=== PATIENT | female | born 1965 | race Caucasian/White ===

== ENCOUNTER 2019-12-13 12:19 | Emergency (ER) | payer OTHER, SELFPAY ==
--- NOTE | ~2019-12-13 | CT_ITS ---
EXAMINATION: CTA brain carotid DATE: 12/13/2019 13:44 INDICATION: Headache. Neck pain. TECHNIQUE: Computed tomographic angiography (CTA) of the head was performed without and with 100 mL O mnipaque-350 intravenous contrast. CTA of the neck was performed with intravenous contrast. Automated exposure control and iterative reconstruction technique were employed. The dose-length product was 1 759.47 mGy-cm. Maximum intensity projection and volume rendered 3D-reconstructions were created by guillaume bae technologist on a separate workstation. COMPARISON: None. FINDINGS: HEAD CTA: There is no intracranial hemorrhage, acute infarction, or abnormal intracranial mass lesion . There are small areas of cystic encephalomalacia in the left frontal lobe centrum semiovale and rig ht frontal lobe gill radiata. There is no intracranial hemorrhage, acute infarction, or abnormal in tracranial mass lesion. The ventricles are normal in size. There is mild mucosal thickening in the pa ranasal sinuses. The orbits are normal. The mastoid air cells are normal. Left vertebral artery is do minant. There is no significant stenosis of basilar artery or the posterior cerebral arteries. The po sterior communicating arteries are normal. There is no significant stenosis of the intracranial inter nal carotid arteries or anterior or middle cerebral arteries. There is no aneurysm. Anterior communic ating artery is normal. NECK CTA: There is mild emphysema. There is no significant stenosis of the vertebral arteries. There is plaque in the proximal internal carotid arteries. There is 0% stenosis of the proximal right inter nal carotid artery relative to normal distal artery lumen diameter (NASCET criteria). There is 0% car nosis of the proximal left internal carotid artery relative to normal distal artery lumen diameter. T here is moderate cervical spondylosis. IMPRESSION: 1. Small areas of cystic encephalomalacia in bilateral frontal lobe white matter. 2. No aneurysm or significant intracranial arterial stenosis. 3. 0% stenosis of the proximal internal carotid arteries relative to normal distal artery lumen diame ters (NASCET criteria). Reviewed, dictated and finalized at location A. ING MACHINE OPERATOR IMPRESSION: 1. Small areas of cystic encephalomalacia in bilateral frontal lobe white matte r. 2. No aneurysm or significant intracranial arterial stenosis. 3. 0% stenosis of the proximal internal carotid arteries relative to normal dis tay artery lumen diameters (NASCET criteria).
[2019-12-13 12:32] VITALS: BP 148/91; PULSE 74; RESP 18; TEMP 36.3; O2SAT 99
[2019-12-13 12:44] VITALS: BP 190/85; PULSE 75; RESP 14; TEMP 36.3; O2SAT 96
--- NOTE | 2019-12-13 12:54 | ED.NEUROSD ---
HPI - Neuro Symptoms/Deficit General Chief Complaint: Neuro Symptoms/Deficit Stated Complaint: Numb all over Time Seen by Provider: 12/13/19 12:53 Source: patient and family Mode of arrival: EMS Limitations: no limitations History of Present Illness HPI Narrative: The pt is a 54 y/o female who presents to the ED, via EMS, c/o numbness to the face and all extremities onset today. She states that three days ago, she struck her head on her TV stand three days ago. Her family states that she has had an MCKNIGHT since then. Pt notes that she did not receive care at that time, but has been taking more Aspirin. Pt states that she was showering when she began to experience a sharp MCKNIGHT and tingling in her right thumb. This resolved. Pt states that she went to her mother's later. She states that she went to answer the door when she began to experience tingling in her face and both hands, as well as her MCKNIGHT. This later developed into numbness across the face and all four extremities. She notes that she does not have any history of previous episodes. She does note she has a PMHx of anxiety. [facility]. Pt denies neck pain and back pain. Location: left face, right face, left arm, right arm, left leg and right leg History of same: No Quality: numb and tingling (Resolved) Associated symptoms: headaches (Sharp, Onset three days ago) and other (Tingling to the right thumb, bilateral hands, and left face (Resolved), Head injury (Occurred three days ago)) Related Data Home Medications Medication Instructions Recorded Confirmed Benadryl 12/13/19 Paxil 12/13/19 Xanax 12/13/19 Zantac 12/13/19 lamotrigine 12/13/19 Allergies Allergy/AdvReac Type Severity Reaction Status Date / Time No Known Allergies Allergy Verified 12/13/19 12:52 Review of Systems Review of Systems: Narrative: Review of Systems Musculoskeletal: Negative for back pain and neck pain. Neurological: Positive for numbness to the face and all four extremities, resolved tingling to the right thumb, bilateral hands, and left face, sharp headache onset three days ago, and head injury that occurred three days ago. All systems reviewed & are unremarkable except as noted in HPI and below PMFSH Past Medical History Medical History (Updated 12/13/19 @ 14:27 by Deanne Moise MD) Anxiety Surgical History Surgical History (Updated 12/13/19 @ 13:08 by Chris Paulson) Surgical history unknown Social History Social History (Updated 12/13/19 @ 13:08 by Chris Paulson) Smoking status: Unknown if ever smoked Gender identity (if verbalized by the patient): Female Comments PCP: [facility] Exam Narrative: Exam Narrative: Constitutional: Appears well-developed. No distress. HENT: Head: Normocephalic. Nose: Nose normal. Mouth/Throat: Oropharynx is clear and moist. Eyes: Conjunctiva are normal. Neck: C-Collar in place. Cardiovascular: Normal rate and regular rhythm. Pulmonary/Chest: Effort normal and breath sounds normal. Abdominal: Soft. There is no tenderness. Musculoskeletal: Normal range of motion. No edema. Neurological: Alert and oriented to person, place, and time. Decreased movement in all four extremities, with pt unable to lift either arm or leg off of stretcher. Sensation intact throughout. Skin: Skin is warm. No pallor. Psychiatric: Normal mood and affect. Psych: Affect: Anxious affect present Course Reevaluation(s) Reevaluation #1: Upon re-evaluation, patient is able to ambulate and move all four extremities without difficulty. Will discharge. Date: 12/13/19 Time: 14:24 Vital Signs Vital signs: Vital Signs Temperature 36.3 C L 12/13/19 12:32 Pulse Rate 74 12/13/19 12:32 Respiratory Rate 18 12/13/19 12:32 Blood Pressure 148/91 H 12/13/19 12:32 Pulse Oximetry 99 12/13/19 12:32 Temperature 36.3 C L 12/13/19 12:44 Pulse Rate 78 12/13/19 14:25
--- NOTE | 2019-12-13 13:02 | ECG_ITS ---
Measurements Intervals [place] Rate: 64 P: 56 CA: 165 QRS: 19 QRSD: 93 T: 59 QT: 396 QTc: 409 Interpretive Statements SINUS RHYTHM BORDERLINE ST ABNORMALITY- ANTEROLAT/LAT LEADS BORDERLINE ECG Electronically Signed On 12-13-2019 16:23:34 CORRECTIONS CORPORAL by Ramesh Beth D.O.
[2019-12-13] MEDS: LORAZEPAM INJ 2 MG/ML VIAL 0.5 MG IV PUSH (13:11)
[2019-12-13 13:16] LABS: Basophils Percent Auto 0.3 % (0.2-1.2); Eosinophils Absolute Auto 0.4 K/mm3 (0-0.3); Eosinophils Percent Auto 4.8 % (0-4.4); Hematocrit 40.1 % (37.0-47.0); Hemoglobin 13.5 g/dL (12.0-15.0); Immature Granulocyte Absolute 0.02 K/mm3 (0.00-0.031); Immature Granulocyte Percent A 0.3 % (0-0.5); Lymphocytes Absolute Auto 1.84 K/mm3 (0.9-3.2); Lymphocytes Percent Auto 25.2 % (18.3-44.2); Mean Corpuscular HGB Conc 33.7 g/dl (32-36); Mean Corpuscular Hemoglobin 31.7 pg (26-34); Mean Corpuscular Volume 94.1 fl (80-100); Mean Platelet Volume 11.4 fl (7.4-10.4); Monocytes Absolute Auto 0.9 K/mm3 (0.1-0.6); Monocytes Percent Auto 11.9 % (2.6-8.5); Neutrophils Absolute Auto 4.2 K/mm3 (1.3-6.7); Neutrophils Percent Auto 57.5 % (45.5-73.1); Platelet Count Result 166 k/mm3 (150-375); Red Blood Count 4.26 M/mm3 (4.2-5.4); Red Cell Distribution Width 11.8 % (11.5-14.5); White Blood Count 7.3 K/mm3 (4.5-10.0)
[2019-12-13 13:28] LABS: Alanine Aminotransferase 58 U/L (4-35); Albumin Level 4.3 g/dL (3.5-5.1); Alkaline Phosphatase 82 U/L (38-126); Aspartate Amino Transferase 38 U/L (14-36); Bilirubin,Total 0.3 mg/dL (0.2-1.3); Blood Urea Nitrogen 11 mg/dL (7-17); Calcium 9.2 mg/dL (8.4-10.2); Carbon Dioxide 29 mmol/L (22-30); Chloride 98 mmol/L (98-107); Estimated CRCL calculation 96 ml/min; Estimated Glomerular Filt Rate > 60; Glucose 101 mg/dL (65-105); INR 0.9; Partial Thromboplastin Time 25.8 SECONDS (22.3-36.8); Potassium 3.7 mmol/L (3.4-5.0); Prothrombin Time 11.6 Seconds (11.1-14.7); Sodium 136 mmol/L (137-145)
[2019-12-13 13:30] LABS: Blood Urea Nitrogen 9 mg/dL (8-26); Estimated CRCL calculation 96 ml/min; Estimated Glomerular Filt Rate > 60
--- NOTE | 2019-12-13 13:45 | PC.NURSE ---
C-Collar removed, no cervical fracture, EDP aware and is ok with removal.
--- NOTE | 2019-12-13 14:00 | PC.NURSE ---
Pt. stated she feels completely better . Pt. ambulating and disconnecting themselves off the monitor. EDP notified. EDP ok with Pt. discharge.
[2019-12-13 14:08] LABS: Add Urine Microscopic? NO; Appearance Urine Clear (Clear); Bilirubin Urine Negative (Negative); Blood Urine Negative (Negative); Color Urine Colorless (Yellow); Glucose Urine UA Negative (Negative); Ketones Urine Negative (Negative); Leukocyte Esterase Ur Negative LEU/UL (Negative); Nitrate Urine Negative (Negative); Protein Urine Negative (Negative); Urobilinogen Urine Negative mg/dL (<2.0)
[2019-12-13 14:13] LABS: Specific Grav Ur 1.048 (1.001-1.035)
[2019-12-13 14:25] VITALS: BP 155/91; PULSE 78; RESP 14; O2SAT 100
== END 2019-12-13 14:35 | disposition home or self-care (01) ==
PROVIDERS: Emergency Provider Emergency Medicine
DX: R20.2 Paresthesia of skin (principal); R53.1 Weakness; F41.9 Anxiety disorder, unspecified; R94.31 Abnormal electrocardiogram [ECG] [EKG]
CPT/HCPCS: 36415; 51701; 70496; 70498; 80053; 81003; 85025; 85610; 85730; 93005; 96374; 99284; J2060; L0140; Q9967

== ENCOUNTER 2023-04-26 22:35 | Inpatient (IN) | payer OTHER, SELFPAY ==
[2023-04-26] VITALS (8 sets, daily range): BP systolic 155–181; BP diastolic 80–117; PULSE 67–80; RESP 13–20; TEMP 36.7; O2SAT 100
--- NOTE | ~2023-04-26 | MR_ITS ---
EXAMINATION: MR brain/brain stem wo/w con DATE: 04/27/2023 11:10 INDICATION: Headache. Left hemiparesis. TECHNIQUE: Magnetic resonance imaging (MRI) of the brain and brainstem was performed without and with 20 mL MultiHance intravenous contrast. COMPARISON: Head CT 04/26/2023 FINDINGS: There is an acute infarct in the yoana on the right. There are scattered areas of nonspecifi c increased T2-weighted signal intensity in the cerebral white matter. There is no intracranial hemor rhage or abnormal mass lesion. The ventricles are normal in size. There is mild mucosal thickening in the paranasal sinuses. The orbits are normal. The mastoid air cells are normal. IMPRESSION: 1. Acute infarct in the yoana on the right. 2. Mild nonspecific cerebral white matter disease, which likely represents chronic small vessel ische shu disease. Reviewed, dictated and finalized at location A. IMPRESSION: 1. Acute infarct in the yoana on the right. 2. Mild nonspecific cerebral white matter disease, which likely represents director financial systems freida small vessel ischemic disease.
--- NOTE | ~2023-04-26 | CT_ITS ---
CT ANGIOGRAM NECK AND HEAD History: CVA, left-sided weakness. Technique: Serial spiral axial images through the head and neck were obtained during arterial phase I V injection of 100 cc of Omnipaque 350. 3-D postprocessing and MIP images were then reconstructed on the remote workstation. Dose reduction technique was used on this scan by utilizing automated Accertifyur e control and iterative reconstruction technique. The dose-length product (DLP) was 1189.82 mGy-cm. CTA neck findings: Bilateral vertebral bodies are patent. Bilateral common carotid, internal carotid , and external carotid arteries are patent. No large vessel occlusion. No stenosis or aneurysm. The p roximal right internal carotid artery demonstrates 0% stenosis relative to the normal distal artery l umen diameter. The proximal left internal carotid artery demonstrates 0% stenosis relative to the nor mal distal artery lumen diameter. CTA head findings: Distal vertebral arteries, basilar artery, and posterior cerebral arteries are pat ent. Distal internal carotid arteries, middle cerebral arteries, and anterior cerebral arteries are p atent. No large vessel occlusion. No stenosis or aneurysm. Impression: No significant abnormality seen. Reviewed, dictated and finalized at location . Impression: No significant abnormality seen.
--- NOTE | ~2023-04-26 | XR_ITS ---
EXAMINATION: XR chest 1V portable 04/26/2023 23:04 INDICATION: Stroke. PROCEDURE: AP portable chest COMPARISON: No prior studies for comparison. FINDINGS: The lungs are clear. The cardiomediastinal silhouette is within normal limits. There are no pleural effusions. There is no pneumothorax suspected. IMPRESSION: 1: NO ACUTE CARDIOPULMONARY DISEASE. Reviewed, dictated and finalized at location L.
--- NOTE | ~2023-04-26 | CT_ITS ---
Non-contrast Head CT History: CVA, left-sided weakness COMPARISON: 12/13/2019 Technique: Axial non-contrast imaging of the brain was performed. Dose reduction technique was used on this scan by utilizing automated exposure control and iterative reconstruction technique. The dose -length product (DLP) was 605.33 mGy-cm. Findings: There is no evidence of intracranial hemorrhage, mass lesion, or acute infarct. Brain par enchyma appears normal. The ventricles and subarachnoid spaces are normal in size. The calvarium ap pears normal. The visualized paranasal sinuses and mastoid air cells are clear. Impression: No significant abnormality seen. Case discussed with Dr. Osullivan at 10:50 p.m. on 04/26/2023. Reviewed, dictated and finalized at location M. Impression: No significant abnormality seen. Case discussed with Dr. Osullivan at 10:50 p.m. on 04/26/2023.
--- NOTE | 2023-04-26 22:35 | ECG_ITS ---
Measurements Intervals [place] Rate: 62 P: 72 MA: 172 QRS: 34 QRSD: 82 T: 94 QT: 374 QTc: 380 Interpretive Statements SINUS RHYTHM POSSIBLE LEFT ATRIAL ENLARGEMENT [-0.1mV P-WAVE IN V1/V2] ST DEVIATION AND MODERATE T-WAVE ABNORMALITY, CONSIDER LATERAL ISCHEMIA [-0.1+ mV T- WAVE IN I/aVL/V5/V6] COMPARED TO ECG 12/13/2019 13:14:10 NO SIGNIFICANT CHANGES Electronically Signed On 04-27-2023 14:04:27 CDT by Enrirque Dalton M.D.
--- NOTE | 2023-04-26 22:39 | ED.NEUROSD ---
HPI - Neuro Symptoms/Deficit General Chief Complaint: Suspected CVA Stated Complaint: cva History of Present Illness HPI Narrative: Patient 58-year-old female who presents the emergency department with chief complaint of strokelike symptoms. The patient reports that at 9 PM she started having a left-sided facial droop and left-sided arm and leg weakness and started having some difficulty with speech. Patient states that she had a little bit of headache with this the patient reports no prior history of stroke. Related Data Home Medications Medication Instructions Recorded Confirmed Benadryl 12/13/19 Paxil 12/13/19 Xanax 12/13/19 Zantac 12/13/19 lamotrigine 12/13/19 Allergies Allergy/AdvReac Type Severity Reaction Status Date / Time No Known Allergies Allergy Verified 12/13/19 12:52 Review of Systems Review of Systems: A 10 system review of systems was completed on the patient and is negative except for what is stated in the HPI. Nursing and ancillary documentation was reviewed. [facility] Past Medical History Medical History Anxiety Surgical History Surgical History Surgical history unknown Social History Social History Smoking status: Unknown if ever smoked Gender identity (if verbalized by the patient): Female Exam Narrative: GENERAL: Well-appearing, well-nourished, and in no acute distress. HEAD: Normocephalic, atraumatic. EYES: PERRLA and EOMI. ENT: Nares clear, no rhinorrhea or epistaxis. Mucous membranes moist. NECK: Supple. CHEST: Clear to auscultation. No respiratory distress. HEART: Regular rate and rhythm. No murmur heard. Normal peripheral pulses. ABDOMEN: Soft, nontender, nondistended, normal active bowel sounds. EXTREMITIES: Normal range of motion. No edema. SKIN: Warm, dry, no rash. NEURO: Left-sided facial droop, left upper extremity and left lower extremity weakness PSYCH: Normal mood and affect. Course Vital Signs Vital signs: Vital Signs Pulse Rate 70 04/26/23 22:52 Respiratory Rate 16 04/26/23 22:52 Blood Pressure 181/81 H 04/26/23 22:52 Pulse Oximetry 100 04/26/23 22:52 Oxygen Delivery Room Air 04/26/23 22:52 Temperature 36.7 C 04/26/23 23:17 Pulse Rate 68 04/26/23 23:18 Respiratory Rate 18 04/26/23 23:17 Blood Pressure 161/117 H 04/26/23 23:17 Pulse Oximetry 100 04/26/23 23:17 Oxygen Delivery Room Air 04/26/23 22:52 MDM - Neuro Symptoms/Deficit MDM Narrative Medical decision making narrative: Differential diagnosis includes acute CVA, complex migraine, electrolyte abnormality, conversion disorder The patient the patient was initially seen as a code stroke and initially had an NIH of between 5 and 6. The patient was taken immediately to CT scan of which CTs showed no evidence of hemorrhage CT angiography of the head and neck showed no evidence of occlusion The case was discussed with stroke neurology at [facility] who given the patient is having severe headache with the onset of symptoms felt that this was most likely secondary to complex migraine the patient at that time had already had some improvement and was starting to move the left upper extremity and had mild movement in the left lower extremity as well so was starting to develop rapidly improving symptoms. The patient was offered tPA but due to the 2% risk of and 6% risk of hemorrhage the patient stated that she wanted to treat this as though it was a complex migraine and did not want to receive thrombolytic therapy The patient had improvement in her neurological symptoms after receiving a migraine cocktail the patient is now able to move all extremities and NIH has improved to 0 Most likely the symptoms are due to complex migraine but the patient w
[2023-04-26 22:43] LABS: Estimated Glomerular Filt Rate > 60
--- NOTE | 2023-04-26 22:46 | PC.NURSE ---
Addendum entered by Adelita Puentes RN 04/26/23 22:55: golf club head inspector, Marilu, made aware. Original Note: While assisting patient and EMS in CT this RN placed an IV in pts R AC after discussing this with patient. Upon insertion flashback was shown and blood being collecting. Pt screaming take it out take it out now I only get butterflys! Education provided by this RN and NIK Li, that if she is having a stroke a larger bore IV is required and if taken out the patient will need to be stuck again. Pt agreed to leave PIV in and when this RN placed and patted the edges of the tegaderm on to secure PIV the pt lifted her head off the CT table and got close to this RNs face and screamed what the hell are you doing to me?! You didnt have to pat it! This RN apologized and stated I was just trying to help and would never purposefully hurt her and that respect and kindness go a long way both ways. Pt then yelled So does compassion! This RN then left and NIK Li, with patient.
[2023-04-26 22:49] LABS: Basophils Percent Auto 0.3 % (0.2-1.2); Eosinophils Absolute Auto 0.3 K/mm3 (0-0.3); Eosinophils Percent Auto 4.4 % (0-4.4); Hematocrit 42.1 % (37.0-47.0); Hemoglobin 14.1 g/dL (12.0-15.0); Immature Granulocyte Absolute 0.03 K/mm3 (0.00-0.031); Immature Granulocyte Percent A 0.5 % (0-0.5); Lymphocytes Absolute Auto 2.25 K/mm3 (0.9-3.2); Lymphocytes Percent Auto 35.1 % (18.3-44.2); Mean Corpuscular HGB Conc 33.5 g/dl (32-36); Mean Corpuscular Hemoglobin 31.8 pg (26-34); Mean Corpuscular Volume 94.8 fl (80-100); Monocytes Absolute Auto 0.7 K/mm3 (0.1-0.6); Monocytes Percent Auto 10.5 % (2.6-8.5); Neutrophils Absolute Auto 3.2 K/mm3 (1.3-6.7); Neutrophils Percent Auto 49.2 % (45.5-73.1); Platelet Count Result 185 k/mm3 (150-375); Red Blood Count 4.44 M/mm3 (4.2-5.4); Red Cell Distribution Width 12.1 % (11.5-14.5); White Blood Count 6.4 K/mm3 (4.5-10.0)
[2023-04-26 22:59] LABS: INR 0.9
[2023-04-26 23:01] LABS: Alanine Aminotransferase 42 U/L (6-35); Albumin Level 4.2 g/dL (3.5-5.1); Alkaline Phosphatase 66 U/L (38-126); Anion Gap 7 mmol/L (8-16); Aspartate Amino Transferase 38 U/L (14-36); Bilirubin,Total 0.3 mg/dL (0.2-1.3); Blood Urea Nitrogen 13 mg/dL (7-17); Carbon Dioxide 32 mmol/L (22-30); Chloride 101 mmol/L (98-107); Estimated Glomerular Filt Rate > 60; Glucose 134 mg/dL (65-110); Potassium 3.9 mmol/L (3.4-5.0); Sodium 140 mmol/L (137-145)
[2023-04-26 23:30] LABS: Troponin I < 0.012 ng/mL (0.000-0.034)
[2023-04-26] MEDS: SODIUM CHLORIDE 0.9% IV 1,000 ML 999 ML IV CONT (23:34)
[2023-04-26] MEDS: MAGNESIUM SULF 1 GM/D5W 100 ML 1 GM/100 ML BAG IVPB (23:36)
[2023-04-26] MEDS: KETOROLAC 30 MG/ML VIAL (*BKC) IV PUSH (23:37)
[2023-04-26] MEDS: diphenhydrAMINE HCl INJ 50 MG/ML VIAL IV PUSH (23:39)
[2023-04-26] MEDS: PROCHLORPERAZINE EDISYLATE 10 MG/2 ML VIAL IV PUSH (23:40)
[2023-04-26] MEDS: diphenhydrAMINE HCl INJ 50 MG/ML VIAL 25 MG IV PUSH (23:54)
[2023-04-27] VITALS (28 sets, daily range): BP systolic 136–208; BP diastolic 78–123; PULSE 56–93; RESP 12–20; TEMP 36.1–36.7; O2SAT 94–100; BMI 36.3
[2023-04-27] MEDS: LORazepam INJ (*CRX) 2 MG/ML VIAL 0.5 MG IV PUSH (00:58)
--- NOTE | 2023-04-27 02:19 | PM.IMHP ---
H&P: HPI History of Present Illness Date/Time: 04/27/23 02:19 Chief Complaint: Left-sided weakness Narrative: This is a 58-year-old female with past medical history significant for migraine headaches, generalized anxiety, GERD, obesity. Patient presents to the emergency room due to left-sided weakness, facial droop, speech disturbance and headache. Patient has been in her usual state of health up until this point, denies any nausea, vomiting, vision changes, headaches, shortness of breath, leg swelling, PND, orthopnea, syncope or near syncope. In emergency room patient received treatment for headache. Patient had resolution of symptoms, stroke team a from [facility] was consulted as well. Patient is been placed in observation for further evaluation management and treatment. Review of Systems Review of Systems: Left-sided weakness, facial droop, speech disturbance, headache. Constitutional: Constitutional: Denies chills, Denies fatigue, Denies fever(s), Reports headache(s), Denies malaise and Denies poor appetite Eyes: Eyes: Denies change in vision ENT: Denies dysphagia, Denies vertigo, Denies dizziness, Reports headache(s) and Denies odynophagia Cardiovascular: Cardiovascular: Denies chest pain, Denies leg edema, Denies lightheadedness, Denies radiating jaw, neck or arm pain and Denies palpitations Respiratory: Respiratory: Denies chest congestion, Denies cough, Denies excessive phlegm production and Denies dyspnea Gastrointestinal: Gastrointestinal: Denies abdominal pain, Denies dyspepsia, Denies heartburn, Denies diarrhea, Denies nausea and Denies vomiting Genitourinary: Genitourinary: Denies dysuria Musculoskeletal: Musculoskeletal: Denies abnormal gait and Denies myalgias Integumentary/Breasts: Skin/Breast: Denies rash Neurologic: Reports focal weakness and Reports Sensory deficit (Neuro) Psychiatric: Psychiatric: Reports no additional psychiatric complaints and Reports as per HPI Endocrine: Endocrine: Denies cold intolerance, Denies flushing, Denies heat intolerance, Denies polyphagia, Denies polydipsia and Denies palpitations Hematologic/Lymphatic: Hematologic/Lymphatic: Reports no additional hematologic/lymphatic complaints and Reports as per HPI Allergic/Immunologic: Allergic/Immunologic: Reports no additional allergic/immunologic complaints and Reports as per HPI PMF Past Medical History Medical History Anxiety Surgical History Surgical History Surgical history unknown Social History Social History Smoking status: Unknown if ever smoked Gender identity (if verbalized by the patient): Female Meds Home Medications and Allergies Home Medications Medication Instructions Recorded Confirmed Type Benadryl 12/13/19 History Paxil 12/13/19 History Xanax 12/13/19 History Zantac 12/13/19 History lamotrigine 12/13/19 History Allergies Allergy/AdvReac Type Severity Reaction Status Date / Time No Known Allergies Allergy Verified 12/13/19 12:52 Vital Signs Vital Signs - 24 hr 04/26/23 22:52 04/26/23 23:17 04/26/23 23:18 Temperature 98.1 F Pulse Rate 70 69 68 Respiratory Rate 16 18 Blood Pressure 181/81 H 161/117 H Pulse Oximetry 100 100 Oxygen Delivery Room Air Exam Narrative: Patient is laying in a stretcher Const: General: comfortable, no acute distress, well developed, alert, awake and average body habitus Nutritional Appearance: obese Orientation/consciousness: patient oriented x3 HENMT: Head: normal to inspection, normocephalic and atraumatic Ears: hearing grossly normal bilaterally Face/Nose/Sinus: normal facial exam Face and sinus: normal facial exam Eyes: General: appearance normal, both eyes and all related structures Pupils: Equal, round
--- NOTE | 2023-04-27 02:49 | PC.NURSE ---
Patient was offered TPA by Dr. Abran ANTOIEN, but patient refused.
[2023-04-27 03:06] LABS: Appearance Urine Clear (Clear); Bilirubin Urine Negative (Negative); Blood Urine Negative (Negative); Color Urine Yellow (Yellow); Glucose Urine UA Negative (Negative); Ketones Urine Negative (Negative); Leukocyte Esterase Ur Negative LEU/UL (Negative); Nitrate Urine Negative (Negative); Protein Urine Negative (Negative); Urobilinogen Urine 0.2 mg/dL (<2.0); pH Urine 5.5 (5.0-9.0)
[2023-04-27 03:07] LABS: Add Urine Microscopic? NO; Specific Grav Ur 1.043 (1.001-1.035)
--- NOTE | 2023-04-27 05:51 | ADMGEN ---
This patient, Jacquelyn Jimenez, was admitted to [facility] Surg Room 329-01. Patient/family oriented to hospital policies and general routines including ID bracelet, bed and alarms, visiting hours, pain management, procedures, bathroom and other care routines, personal items, smoking policy, room service/diet, and visiting hours. Information on how to activate the Rapid Response Team has been discussed. Patient/Family are encouraged to report perceived risks to care and to ask questions if they do not understand what they are told or what they should do.
[2023-04-27 08:00] LABS: Glucose Point of Care 167 mg/dl (65-105)
[2023-04-27] MEDS: hydrALAZINE HCL 20 MG/ML VIAL 10 MG IV PUSH (08:29)
[2023-04-27] MEDS: PARoxetine 20 MG TABLET 40 MG PO (09:47)
[2023-04-27] MEDS: lamoTRIgine 50 MG TABLET PO (09:47)
[2023-04-27] MEDS: LORATADINE 10 MG TABLET PO (09:50)
[2023-04-27] MEDS: LORazepam (*CRX) 1 MG TABLET PO ×2 (10:42→20:15)
--- NOTE | 2023-04-27 12:16 | WPDNEURCNPN ---
Assessment and Plan Assessment and plan (1) Complicated migraine: Code(s): G43.109 - Migraine with aura, not intractable, without status migrainosus Status: Acute (2) Generalized anxiety disorder: Code(s): F41.1 - Generalized anxiety disorder Status: Acute Plan 1 complex migraine 2 history of generalized anxiety disorder plan a as outlined Consult date: 04/27/23 HPI: Jacquelyn Jimenez is a 58 year old female admitted to the hospital through the emergency room with complaints of stroke-like symptoms and with the description that around 9:00 p.m. she started having left-sided facial droop and left-sided upper extremity and lower extremity weakness along with the mild headache but with no previous history of stroke. Patient reportedly taking multiple medications which include Paxil Xanax lamotrigine and Benadryl. She is not allergic to any medication initial examination in the emergency room documented the left-sided facial droop with left upper extremity and left lower extremity weakness vital signs were with blood pressure 181/81 repeat 161/[address] scan of the head was negative [facility] was contacted by the ER who suggested the possibility of complex migraine as patient was improving in the emergency room for no transfer was indicated she was offered the tPA but considering the complications it was not accepted. Her CBC was normal so as the BMP and other lab she was admitted to the hospital with stroke scale of 1, she had an MRI done which revealed acute infarct in the yoana on the right side with nonspecific white matter disease and head neck CTA was negative at this particular time she is on p.r.n. hydralazine to control the blood pressure 10 mg q.8 hours IV push and all her other medications are continued as such PMFSH Past Medical History Medical History Anxiety Surgical History Surgical History Surgical history unknown Social History Social History Smoking packs per day: 1 Smoking cigarettes per day: 20.0 Smoking status: Heavy tobacco smoker Tobacco type: cigarettes Second hand tobacco smoke exposure: Yes Alcohol intake: current Drinks per week: 5 Substance use: never Substance use type: does not use Lack of Transportation: No Lack of Food: Never True Current Housing: I Have Housing Concerned About Future Housing: No Difficulty Paying Gas/Electric Bills: No Difficulty Paying for Meds: No Currently Unemployed: No Education: High School Diploma/GED Difficulty w/ Childcare or Family Care: No Gender identity (if verbalized by the patient): Female Spiritual care concerns: No Meds Home Medications and Allergies Home Medications Medication Instructions Recorded Confirmed Type Paxil 40 mg PO DAILY 12/13/19 04/27/23 History lamotrigine 50 mg PO DAILY 12/13/19 04/27/23 History albuterol sulfate 90 mcg/actuation 2 puff inhalation QID PRN SOB 04/27/23 04/27/23 History aerosol inhaler (ProAir HFA) cetirizine 10 mg tablet (Zyrtec) 10 mg PO DAILY 04/27/23 04/27/23 History lorazepam 1 mg tablet 1 mg PO Q12H 04/27/23 04/27/23 History mometasone-formoterol HFA 200 2 puff inhalation Q12H PRN SOB 04/27/23 04/27/23 History mcg-5 mcg/actuation aerosol inhaler (Dulera) omeprazole 20 mg capsule,delayed 20 mg PO DAILY PRN Heartburn 04/27/23 04/27/23 History release Allergies Allergy/AdvReac Type Severity Reaction Status Date / Time No Known Allergies Allergy Verified 12/13/19 12:52 Vital Signs Vital Signs - 24 hr 04/26/23 22:52 04/26/23 23:17 04/26/23 23:18 Temperature 36.7 C Pulse Rate 70 69 68 Respiratory Rate 16 18 Blood Pressure 181/81 H 161/117 H Pulse Oximetry 100 100 Oxygen Delivery Room Air 04/27/23 03:05 04/26/23 23:15 04/13
--- NOTE | 2023-04-27 15:13 | PM.IMPN ---
Progress Note: A&P Assessment and Plan (1) CVA (cerebral vascular accident): Code(s): I63.9 - Cerebral infarction, unspecified Status: Acute Assessment and Plan: Patient presented to the ED with left-sided weakness, facial droop, speech disturbance and headache. CT head no acute intracranial process CTA head and neck less than 50% stenosis bilateral carotid arteries MRI of the brain revealing acute infarct in the right yoana On presentation patient is blood pressure was 181/81 Patient has been consistently hypertensive and lisinopril 10 mg started P.r.n. IV hydralazine Allow permissive hypertension Neurology consulted PT and OT consulted (2) Complicated migraine: Code(s): G43.109 - Migraine with aura, not intractable, without status migrainosus Status: Acute Assessment and Plan: CT and CTA of the head and neck within normal limits Now resolved Neurology consult (3) Generalized anxiety disorder: Code(s): F41.1 - Generalized anxiety disorder Status: Chronic Assessment and Plan: Continue home meds Continue to monitor (4) GERD (gastroesophageal reflux disease): Code(s): K21.9 - Gastro-esophageal reflux disease without esophagitis Status: Chronic Assessment and Plan: Continue Zantac (5) Obesity: Code(s): E66.9 - Obesity, unspecified Status: Chronic Assessment and Plan: Lifestyle and diet modifications Subjective Date/time seen: 04/27/23 15:13 Interval history: Patient emotional after discovering news of her having a stroke. She is having consistent left lower and upper extremity weakness. She is unable to move her left arm and left leg is very weak. She is having left-sided facial droop. Patient is also experiencing diplopia. Patient is still having hypertensive episodes and was started on 10 mg of lisinopril. Plan to check A1c and lipid panel in the morning. PT and OT consulted. Patient will likely need placement prior to discharge. 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, left lower extremity strength 1/5, right upper lower extremity strength 5/5 Objective Data Vital Signs Vital Signs: Vital Signs - 24 hr 04/26/23 22:52 04/26/23 23:17 04/26/23 23:18 Temperature 98.1 F Pulse Rate 70 69 68 Respiratory Rate 16 18 Blood Pressure 181/81 H 161/117 H Pulse Oximetry 100 100 Oxygen Delivery Room Air 04/27/23 03:05 04/26/23 23:15 04/26/23 23:31 Temperature Pulse Rate 73 72 67 Respiratory Rate 18 19 15 Blood Pressure 175/123 H 155/80 H Pulse Oximetry 100 100 100 Oxygen Delivery 04/26/23 23:32 04/26/23 23:45 04/26/23 23:46 Temperature Pulse Rate 74 75 80 Respiratory Rate 13 15 20 Blood Pressure 155/97 H Pulse Oximetry 100 Oxygen Delivery 04/27/23 00:00 04/27/23 00:15 04/27/23 00:30 Temperature Pulse Rate 92 72 82 Respiratory Rate 20 13 20 Blood Pressure Pulse Oximetry 100 Oxygen Delivery 04/27/23 00:45 04/27/23 01:00 04/27/23 01:15 Temperature Pulse Rate 80 83 84 Respiratory Rate 19 20 17 Blood Pressure Pulse Oximetry 96 100 Oxygen Delivery 04/27/23 01:30 04/27/23 01:45 04/27/23 02:00 Temperature Pulse Rate 93 62 71 Respiratory Rate 16 15 13 Blood Pressure Pulse Oximetry 95 94 100 Oxygen Delivery 04/27/23 02:15 04/27/23 02:30 04/27/23 02:45 Temperature Pulse Rate 84 87 73 Re
[2023-04-27] MEDS: FLUTICASONE/SALMETEROL 230-21 MCG INHALER 1 PUFF 2 PUFF INHALATION (21:40)
[2023-04-28] VITALS (13 sets, daily range): BP systolic 134–187; BP diastolic 24–86; PULSE 59–91; RESP 12–18; TEMP 35.8–36.7; O2SAT 63–100
[2023-04-28] MEDS: hydrALAZINE HCL 20 MG/ML VIAL 10 MG IV PUSH ×2 (03:03→11:47)
--- NOTE | 2023-04-28 03:27 | ECG_ITS ---
Measurements Intervals [place] Rate: 60 P: 64 [place]: 161 QRS: 28 QRSD: 90 T: 93 QT: 416 QTc: 418 Interpretive Statements SINUS RHYTHM NONSPECIFIC T-WAVE ABNORMALITY COMPARED TO ECG 04/26/2023 22:54:25 NO SIGNIFICANT CHANGES Electronically Signed On 04-28-2023 13:26:51 CDT by Bebeto Daly M.D.
[2023-04-28] MEDS: MORPHINE SULFATE (*CRX) 2 MG/ML INJ 1 MG IV PUSH (04:15)
[2023-04-28 05:12] LABS: Basophils Percent Auto 0.1 % (0.2-1.2); Eosinophils Absolute Auto 0.2 K/mm3 (0-0.3); Eosinophils Percent Auto 2.6 % (0-4.4); Hematocrit 38.7 % (37.0-47.0); Hemoglobin 12.9 g/dL (12.0-15.0); Immature Granulocyte Absolute 0.02 K/mm3 (0.00-0.031); Immature Granulocyte Percent A 0.3 % (0-0.5); Lymphocytes Absolute Auto 2.38 K/mm3 (0.9-3.2); Lymphocytes Percent Auto 34.9 % (18.3-44.2); Mean Corpuscular HGB Conc 33.3 g/dl (32-36); Mean Corpuscular Hemoglobin 31.5 pg (26-34); Mean Corpuscular Volume 94.4 fl (80-100); Mean Platelet Volume 11.3 fl (7.4-10.4); Monocytes Absolute Auto 0.8 K/mm3 (0.1-0.6); Monocytes Percent Auto 11.9 % (2.6-8.5); Neutrophils Absolute Auto 3.4 K/mm3 (1.3-6.7); Neutrophils Percent Auto 50.2 % (45.5-73.1); Platelet Count Result 171 k/mm3 (150-375); Red Cell Distribution Width 11.9 % (11.5-14.5); White Blood Count 6.8 K/mm3 (4.5-10.0)
[2023-04-28 05:22] LABS: Alanine Aminotransferase 39 U/L (6-35); Albumin Level 4.1 g/dL (3.5-5.1); Alkaline Phosphatase 63 U/L (38-126); Anion Gap 7 mmol/L (8-16); Aspartate Amino Transferase 32 U/L (14-36); Bilirubin,Total 0.5 mg/dL (0.2-1.3); Blood Urea Nitrogen 8 mg/dL (7-17); Calcium 8.7 mg/dL (8.4-10.2); Carbon Dioxide 28 mmol/L (22-30); Chloride 102 mmol/L (98-107); Cholesterol 216 mg/dL (0-200); Estimated CRCL calculation 95 ml/min; Estimated Glomerular Filt Rate > 60; Glucose 111 mg/dL (65-110); HDL Direct 53 mg/dL; Potassium 3.7 mmol/L (3.4-5.0); Sodium 137 mmol/L (137-145); Triglycerides 120 mg/dL (<150)
[2023-04-28 05:32] LABS: LDL Cholesterol Direct 148 mg/dL
[2023-04-28 05:33] LABS: Troponin I 0.013 ng/mL (0.000-0.034)
[2023-04-28] MEDS: LORazepam (*CRX) 1 MG TABLET PO ×2 (05:49→20:47)
[2023-04-28] MEDS: PARoxetine 20 MG TABLET 40 MG PO (08:12)
[2023-04-28] MEDS: lamoTRIgine 50 MG TABLET PO (08:13)
[2023-04-28] MEDS: lisinopriL 10 MG TABLET PO (08:13)
[2023-04-28] MEDS: LORATADINE 10 MG TABLET PO (08:16)
[2023-04-28] MEDS: FLUTICASONE/SALMETEROL 230-21 MCG INHALER 1 PUFF 2 PUFF INHALATION ×2 (08:30→21:19)
--- NOTE | 2023-04-28 10:00 | PM.IMPN ---
Progress Note: A&P Assessment and Plan (1) CVA (cerebral vascular accident): Qualifiers: CVA mechanism: unspecified Qualified Code(s): I63.9 - Cerebral infarction, unspecified Code(s): I63.9 - Cerebral infarction, unspecified Status: Acute Assessment and Plan: Patient presented to the ED with left-sided weakness, facial droop, speech disturbance and headache. CT head no acute intracranial process CTA head and neck less than 50% stenosis bilateral carotid arteries MRI of the brain revealing acute infarct in the right yoana On presentation patient is blood pressure was 181/81, currently 167/74 Patient has been consistently hypertensive and lisinopril 10 mg started, added amlodipine PO daily, increase lisinopril to 20 mg po Lipid panel revealed elevated LDL started atorvastatin P.r.n. IV hydralazine Allow permissive hypertension Neurology consulted PT and OT consulted (2) Complicated migraine: Code(s): G43.109 - Migraine with aura, not intractable, without status migrainosus Status: Acute Assessment and Plan: CT and CTA of the head and neck within normal limits Now resolved Neurology consult (3) Generalized anxiety disorder: Code(s): F41.1 - Generalized anxiety disorder Status: Chronic Assessment and Plan: Continue home meds Continue to monitor (4) GERD (gastroesophageal reflux disease): Qualifiers: Esophagitis presence: without esophagitis Qualified Code(s): K21.9 - Gastro-esophageal reflux disease without esophagitis Code(s): K21.9 - Gastro-esophageal reflux disease without esophagitis Status: Chronic Assessment and Plan: Continue Zantac (5) Obesity: Qualifiers: Body mass index: BMI 36.0-36.9 Obesity classification: adult class 2 (BMI 35 - 39.9) Obesity type: unspecified obesity type Serious obesity comorbidity presence: with serious comorbidity Qualified Code(s): E66.01 - Morbid (severe) obesity due to excess calories; Z68.36 - Body mass index [BMI] 36.0-36.9, adult Code(s): E66.9 - Obesity, unspecified Status: Chronic Assessment and Plan: Lifestyle and diet modifications (6) Malignant hypertension: Code(s): I10 - Essential (primary) hypertension Status: Acute Assessment and Plan: BP is still elevated at 180/62, currently 167/74 Added amlodipine, increased lisinopril 10 mg PO once PRN hydralazine and lisinopril Continue to trend (7) Brainstem stroke: Code(s): I63.9 - Cerebral infarction, unspecified Status: Acute Assessment and Plan: See above (8) Hyperlipidemia: Qualifiers: Hyperlipidemia type: mixed hyperlipidemia Qualified Code(s): E78.2 - Mixed hyperlipidemia Code(s): E78.5 - Hyperlipidemia, unspecified Status: Acute Assessment and Plan: Cholesterol 216, LDL 148, HDL 53, Triglycerides 120 Start and continue atorvastatin LFTs stable Time Spent With Patient Time: 38 minutes Time with patient: Greater than 35 minutes Subjective Date/time seen: 04/29/23 1000 Interval history: 04/29/23 1000 Patient is doing ok. She is currently contact irineo with PT/OT. Currently She is feeling better. She denies any chest pain, shortness of breath, nausea, vomiting, diarrhea, weakness fatigue. She is wanting to go home. However, she did state that she does feel stronger in her left leg. 04/28/23 1215 patient stated that she is doing okay. She denies any current chest pain, shortness a breath, nausea, vomiting, diarrhea constipation. Blood pressure is still elevated did add amlodipine. She does still have left-sided weakness she can not move her arm or her leg. She is having a problem with insomnia would like something to help her sleep. Currently she is stable will keep trending her blood pressure at this
--- NOTE | 2023-04-28 10:00 | P.PNIM_ITS ---
Progress Note: A&P Assessment and Plan (1) CVA (cerebral vascular accident): Qualifiers: CVA mechanism: unspecified Qualified Code(s): I63.9 - Cerebral infarction, unspecified Code(s): I63.9 - Cerebral infarction, unspecified Status: Acute Assessment and Plan: Patient presented to the ED with left-sided weakness, facial droop, speech disturbance and headache. * CT head no acute intracranial process * CTA head and neck less than 50% stenosis bilateral carotid arteries * MRI of the brain revealing acute infarct in the right yoana * On presentation patient is blood pressure was 181/81, currently 167/74 * Patient has been consistently hypertensive and lisinopril 10 mg started, added amlodipine PO daily, increase lisinopril to 20 mg po * Lipid panel revealed elevated LDL started atorvastatin * P.r.n. IV hydralazine * Allow permissive hypertension * Neurology consulted * PT and OT consulted (2) Complicated migraine: Code(s): G43.109 - Migraine with aura, not intractable, without status migrainosus Status: Acute Assessment and Plan: * CT and CTA of the head and neck within normal limits * Now resolved * Neurology consult (3) Generalized anxiety disorder: Code(s): F41.1 - Generalized anxiety disorder Status: Chronic Assessment and Plan: * Continue home meds * Continue to monitor (4) GERD (gastroesophageal reflux disease): Qualifiers: Esophagitis presence: without esophagitis Qualified Code(s): K21.9 - Gastro-esophageal reflux disease without esophagitis Code(s): K21.9 - Gastro-esophageal reflux disease without esophagitis Status: Chronic Assessment and Plan: * Continue Zantac (5) Obesity: Qualifiers: Body mass index: BMI 36.0-36.9 Obesity classification: adult class 2 (BMI 35 - 39.9) Obesity type: unspecified obesity type Serious obesity comorbidity presence: with serious comorbidity Qualified Code(s): E66.01 - Morbid (severe) obesity due to excess calories; Z68.36 - Body mass index [BMI] 36.0-36.9, adult Code(s): E66.9 - Obesity, unspecified Status: Chronic Assessment and Plan: * Lifestyle and diet modifications (6) Malignant hypertension: Code(s): I10 - Essential (primary) hypertension Status: Acute Assessment and Plan: * BP is still elevated at 180/62, currently 167/74 * Added amlodipine, increased lisinopril 10 mg PO once * PRN hydralazine and lisinopril * Continue to trend (7) Brainstem stroke: Code(s): I63.9 - Cerebral infarction, unspecified Status: Acute Assessment and Plan: * See above (8) Hyperlipidemia: Qualifiers: Hyperlipidemia type: mixed hyperlipidemia Qualified Code(s): E78.2 - Mixed hyperlipidemia Code(s): E78.5 - Hyperlipidemia, unspecified Status: Acute Assessment and Plan: * Cholesterol 216, LDL 148, HDL 53, Triglycerides 120 * Start and continue atorvastatin * LFTs stable Time Spent With Patient Time: 38 minutes Time with patient: Greater than 35 minutes Subjective Date/time seen: 04/29/23 1000 Interval history: 04/29/23999 Patient is doing ok. She is currently contact irineo with PT/OT. Currently She is feeling better. She denies any chest pain, shortness of breath, nausea, vomiting, sherie
--- NOTE | 2023-04-28 11:50 | WPDNEUROPN ---
Progress Note: A&P Assessment and Plan (1) Brainstem stroke: Code(s): I63.9 - Cerebral infarction, unspecified Status: Acute Plan Stable with left hemiparesis and documented pontine stroke in addition to hypertension for which she will receive the treatment as documented Time Spent With Patient Time with patient: less than 15 minutes Subjective Date/time seen: 04/28/23 11:50 Interval history: 58 years old lady admitted to the hospital with ongoing history of generalized anxiety disorder with complex migraine but additional symptoms of left-sided facial numbness with left-sided upper extremity and lower extremity weakness along with the complaints of headache. Evaluation documented acute infarct in the yoana on the right side, and CTA of the intracranial vessels did not document any involvement of the posterior circulation patient is known to be hypertensive and has been documented to be consistently hypertensive in the hospital for which she is taking IV hydralazine on p.r.n. basis she will benefit in the long run from the control of the blood pressure, physical therapy and occupation therapy through the rehab if possible, and ongoing treatment of aspirin 81 mg daily once she has hair we can obtain the surface echocardiogram as well. Objective Data Vital Signs Vital Signs: Vital Signs - 24 hr 04/27/23 14:00 04/27/23 15:23 04/27/23 12:00 Temperature 36.1 C L Pulse Rate 73 85 71 Respiratory Rate 12 Blood Pressure 208/88 H 136/85 Pulse Oximetry 100 Oxygen Delivery 04/27/23 16:34 04/27/23 20:20 04/27/23 21:42 Temperature 36.1 C L Pulse Rate 69 67 Respiratory Rate 16 Blood Pressure 155/81 H Pulse Oximetry 100 99 Oxygen Delivery Room Air 04/27/23 20:00 04/27/23 20:00 04/28/23 00:29 Temperature 36.1 C L Pulse Rate 74 65 Respiratory Rate 16 Blood Pressure 172/74 H Pulse Oximetry 100 Oxygen Delivery Room Air 04/28/23 03:08 04/28/23 03:29 04/28/23 00:00 Temperature 36.7 C Pulse Rate 59 L 60 91 Respiratory Rate 16 18 Blood Pressure 187/66 H 179/58 H Pulse Oximetry 100 100 Oxygen Delivery 04/28/23 04:00 04/28/23 05:42 04/28/23 08:31 Temperature Pulse Rate 80 62 Respiratory Rate 16 Blood Pressure 155/68 H Pulse Oximetry 98 97 Oxygen Delivery Room Air 04/28/23 08:00 04/28/23 08:10 04/28/23 10:02 Temperature 35.8 C L Pulse Rate 74 Respiratory Rate 12 Blood Pressure 134/86 Pulse Oximetry 100 Oxygen Delivery Room Air Room Air 04/28/23 08:09 Temperature Pulse Rate 84 Respiratory Rate Blood Pressure Pulse Oximetry Oxygen Delivery Intake/Output Intake/Output: Intake & Output 04/25/23 04/26/23 04/27/23 04/28/23 23:59 23:59 23:59 23:59 Intake Total 2430 1218 Output Total 1300 600 Balance 1130 618 Meds/Results Medications: Active Medications Generic Name Dose Route Start Last Admin Trade Name Freq PRN Reason Stop Dose Admin Albuterol 2 puff 04/27/23 08:46 Albuterol Sulfate (*Sp) Aerosol 1 Puff INHALATION QID PRN Shortness Of Breath Atorvastatin Calcium 40 mg 04/28/23 21:00 Atorvastatin 40 Mg Tablet PO HS AURELIA Hydralazine HCl 10 mg 04/27/23 06:40 04/28/23 11:47 Hydralazine Hcl 20 Mg/Ml Vial IV PUSH 10 mg Q8H PRN Administration Blood Pressure - High Lamotrigine 50 mg 04/27/23 09:00 04/28/23 08:13 Lamotrigine 50 Mg Tablet PO 05/27/23 08:59 50 mg DAILY AURELIA Administration Lisinopril 10 mg 04/28/23 09:00 04/28/23 08:13 Lisinopril 10 Mg Tablet PO 10 mg DAILY AURELIA Administration Loratadine 10 mg 04/27/23 09:00 04/28/23 08:16 Loratadine 10 Mg Tablet PO 05/27/23 08:59 10 mg DAILY AURELIA Administration Lorazepam 1 mg 04/27/23 09:00 04/28/23 05:49 Lorazepam (*Crx) 1 Mg Tablet PO 1 mg Q12HR AURELIA Administration Pantoprazole Sodium 40 mg 04/27/23 08:46 Pantoprazole 40 Mg Tablet PO DAILY PRN Heartb
--- NOTE | 2023-04-28 12:15 | P.PNIM_ITS ---
Progress Note: A&P Assessment and Plan (1) CVA (cerebral vascular accident): Qualifiers: CVA mechanism: unspecified Qualified Code(s): I63.9 - Cerebral infarction, unspecified Code(s): I63.9 - Cerebral infarction, unspecified Status: Acute Assessment and Plan: Patient presented to the ED with left-sided weakness, facial droop, speech disturbance and headache. * CT head no acute intracranial process * CTA head and neck less than 50% stenosis bilateral carotid arteries * MRI of the brain revealing acute infarct in the right yoana * On presentation patient is blood pressure was 181/81 * Patient has been consistently hypertensive and lisinopril 10 mg started, added amlodipine * Lipid panel revealed elevated LDL started atorvastatin * P.r.n. IV hydralazine * Allow permissive hypertension * Neurology consulted * PT and OT consulted (2) Complicated migraine: Code(s): G43.109 - Migraine with aura, not intractable, without status migrainosus Status: Acute Assessment and Plan: * CT and CTA of the head and neck within normal limits * Now resolved * Neurology consult (3) Generalized anxiety disorder: Code(s): F41.1 - Generalized anxiety disorder Status: Chronic Assessment and Plan: * Continue home meds * Continue to monitor (4) GERD (gastroesophageal reflux disease): Qualifiers: Esophagitis presence: without esophagitis Qualified Code(s): K21.9 - Gastro-esophageal reflux disease without esophagitis Code(s): K21.9 - Gastro-esophageal reflux disease without esophagitis Status: Chronic Assessment and Plan: * Continue Zantac (5) Obesity: Qualifiers: Obesity type: unspecified obesity type Obesity classification: adult class 2 (BMI 35 - 39.9) Serious obesity comorbidity presence: with serious comorbidity Body mass index: BMI 36.0-36.9 Qualified Code(s): E66.01 - Morbid (severe) obesity due to excess calories; Z68.36 - Body mass index [BMI] 36.0- 36.9, adult Code(s): E66.9 - Obesity, unspecified Status: Chronic Assessment and Plan: * Lifestyle and diet modifications (6) Malignant hypertension: Code(s): I10 - Essential (primary) hypertension Status: Acute Assessment and Plan: * BP is still elevated at 180/62 * Added amlodipine * PRN hydralazine and lisinopril * Continue to trend (7) Brainstem stroke: Code(s): I63.9 - Cerebral infarction, unspecified Status: Acute Assessment and Plan: * See above Time Spent With Patient Time: 38 minutes Time with patient: Greater than 35 minutes Subjective Date/time seen: 04/28/231214 Interval history: 04/28/231214 patient stated that she is doing okay. She denies any current chest pain, shortness a breath, nausea, vomiting, diarrhea constipation. Blood pressure is still elevated did add amlodipine. She does still have left-sided weakness she can not move her arm or her leg. She is having a problem with insomnia would like something to help her sleep. Currently she is stable will keep trending her blood pressure at this time. 04/27/23 1513 Patient emotional after discovering news of her having a stroke. She is having consistent left lower and upper extremity weakness. She is unable to move her left arm and left leg is very weak. She is having left-sided facial droop.
--- NOTE | 2023-04-28 12:15 | PM.IMPN ---
Progress Note: A&P Assessment and Plan (1) CVA (cerebral vascular accident): Qualifiers: CVA mechanism: unspecified Qualified Code(s): I63.9 - Cerebral infarction, unspecified Code(s): I63.9 - Cerebral infarction, unspecified Status: Acute Assessment and Plan: Patient presented to the ED with left-sided weakness, facial droop, speech disturbance and headache. CT head no acute intracranial process CTA head and neck less than 50% stenosis bilateral carotid arteries MRI of the brain revealing acute infarct in the right yoana On presentation patient is blood pressure was 181/81 Patient has been consistently hypertensive and lisinopril 10 mg started, added amlodipine Lipid panel revealed elevated LDL started atorvastatin P.r.n. IV hydralazine Allow permissive hypertension Neurology consulted PT and OT consulted (2) Complicated migraine: Code(s): G43.109 - Migraine with aura, not intractable, without status migrainosus Status: Acute Assessment and Plan: CT and CTA of the head and neck within normal limits Now resolved Neurology consult (3) Generalized anxiety disorder: Code(s): F41.1 - Generalized anxiety disorder Status: Chronic Assessment and Plan: Continue home meds Continue to monitor (4) GERD (gastroesophageal reflux disease): Qualifiers: Esophagitis presence: without esophagitis Qualified Code(s): K21.9 - Gastro-esophageal reflux disease without esophagitis Code(s): K21.9 - Gastro-esophageal reflux disease without esophagitis Status: Chronic Assessment and Plan: Continue Zantac (5) Obesity: Qualifiers: Obesity type: unspecified obesity type Obesity classification: adult class 2 (BMI 35 - 39.9) Serious obesity comorbidity presence: with serious comorbidity Body mass index: BMI 36.0-36.9 Qualified Code(s): E66.01 - Morbid (severe) obesity due to excess calories; Z68.36 - Body mass index [BMI] 36.0-36.9, adult Code(s): E66.9 - Obesity, unspecified Status: Chronic Assessment and Plan: Lifestyle and diet modifications (6) Malignant hypertension: Code(s): I10 - Essential (primary) hypertension Status: Acute Assessment and Plan: BP is still elevated at 180/62 Added amlodipine PRN hydralazine and lisinopril Continue to trend (7) Brainstem stroke: Code(s): I63.9 - Cerebral infarction, unspecified Status: Acute Assessment and Plan: See above Time Spent With Patient Time: 38 minutes Time with patient: Greater than 35 minutes Subjective Date/time seen: 04/28/23 1215 Interval history: 04/28/231214 patient stated that she is doing okay. She denies any current chest pain, shortness a breath, nausea, vomiting, diarrhea constipation. Blood pressure is still elevated did add amlodipine. She does still have left-sided weakness she can not move her arm or her leg. She is having a problem with insomnia would like something to help her sleep. Currently she is stable will keep trending her blood pressure at this time. 04/27/23 1513 Patient emotional after discovering news of her having a stroke. She is having consistent left lower and upper extremity weakness. She is unable to move her left arm and left leg is very weak. She is having left-sided facial droop. Patient is also experiencing diplopia. Patient is still having hypertensive episodes and was started on 10 mg of lisinopril. Plan to check A1c and lipid panel in the morning. PT and OT consulted. Patient will likely need placement prior to discharge. 04/27/23? 02:19 This is a 58-year-old female with past medical history significant for migraine headaches, generalized anxiety, GERD, obesity.? Patient presents to the emergency room due to left-sided weakness, facial droop, speech disturbance and headache.? Pat
[2023-04-28] MEDS: HYDROcodone/acetaminophen (*CRX) 5-325 MG TABLET 1 TAB PO (12:27)
--- NOTE | 2023-04-28 12:30 | PCPTNOTE ---
On 04/28/23, the student, [Danika De Jesus], provided care and completed [facility] documentation on this patient. I have reviewed the student's documentation and agree with the findings.
[2023-04-28] MEDS: amLODIPine BESYLATE 5 MG TABLET 10 MG PO (14:38)
[2023-04-28 14:56] LABS: Hemoglobin A1C 6.3 % (<5.7)
[2023-04-28] MEDS: ATORVASTATIN 40 MG TABLET PO (20:47)
[2023-04-28] MEDS: QUEtiapine FUMARATE 25 MG TABLET PO (20:47)
[2023-04-29] VITALS: BP 126/68; PULSE 63; PULSE 82; RESP 16; TEMP 36.6; O2SAT 96
--- NOTE | 2023-04-29 | ECHO_ITS ---
Patient Info Name: Jacquelyn Jimenez Age: 58 years : 1965 Gender: Female Ht: 63 in Wt: 205 lbs BSA: 2.08 m2 HR: 78 bpm BP: 143 / 69 mmHg Heart Rhythm: Sinus Rhythm Technical Quality: Poor Exam Date: 04/29/2023 12:21 PM Exam Location: [facility] Room: [facility] Patient Status: Inpatient Admit Date: 04/27/2023 Staff Ordering Physician: Alex Marquez Client Manager Large Law: Charmaine Smith RDCS Attending Provider: Brandi Hernandez MD Referring Physician: Jimmy SAMPSON; Exam Type: CA echo dop bubble study w con Study Info Indications - CVA LEFT SIDE WEAKNESS Complete two-dimentional, color flow and Doppler transthoracic echocardiogram is performed with agitated saline and with contrast to opacify the left ventricle and to improve the delineation of the left ventricle endocardial borders. Contrast/Agitated Saline Contrast/Ag. Saline: Definity Amount: 2.00 ml Administered By: Charmaine Smith [facility] Existing IV Access: Yes IV Access Condition: patent with no signs of infiltration Reason for Poor Study: patient body habitus Summary 1. There is no color flow evidence of shunting across the atrial septum. Agitated saline study is performed. Agitated saline study is negative at rest. It is indeterminate with Valsalva. It is a poor quality study and cannot definitively assess for presence of PFO. 2. Left ventricular chamber dimension is normal. 3. Left ventricular systolic function is hyperdynamic, estimated at >70%. 4. There is mildly increased left ventricular wall thickness. 5. The left ventricular diastolic function is grade II diastolic dysfunction. 6. Left atrial chamber dimension is mildly enlarged. 7. There is mild tricuspid valve regurgitation. 8. Mild pulmonary hypertension, estimated pulmonary arterial systolic pressure is 44 mmHg. Left Ventricle Left ventricular chamber dimension is normal. Left ventricular systolic function is hyperdynamic, estimated at >70%. There is mildly increased left ventricular wall thickness. The left ventricular diastolic function is grade II diastolic dysfunction. Right Ventricle Right ventricular chamber dimension is normal. Right ventricular systolic function is normal. Left Atria Left atrial chamber dimension is mildly enlarged. Right Atria Right atrial chamber dimension is normal. Atrial Septum There is no color flow evidence of shunting across the atrial septum. Agitated saline study is performed. Agitated saline study is negative at rest. It is indeterminate with Valsalva. It is a poor quality study and cannot definitively assess for presence of PFO. Aortic Valve The aortic valve is not well visualized. There is no aortic valve stenosis. There is trace aortic valve regurgitation. Pulmonic Valve The pulmonic valve is normal. There is no pulmonic valve stenosis. There is trace pulmonic regurgitation. Mitral Valve The mitral valve has normal leaflets. There is no mitral valve stenosis. There is trace mitral valve regurgitation. Tricuspid Valve The tricuspid valve leaflets are normal. There is no significant tricuspid valve stenosis. There is mild tricuspid valve regurgitation. Mild pulmonary hypertension, estimated pulmonary arterial systolic pressure is 44 mmHg. Pericardium/Pleural The pericardium appears epicardial fat pad. There is trivial pericardial effusion. Inferior Vena Cava Normal inferior vena cava with >50% collapse upon inspiration consistent with normal right atrial pressure, 10 mmHg. Aorta The aortic ro
[2023-04-29] MEDS: HYDROcodone/acetaminophen (*CRX) 5-325 MG TABLET 1 TAB PO ×2 (02:38→09:02)
[2023-04-29] MEDS: rOPINIRole HCL 1 MG TABLET PO (03:00)
[2023-04-29 04:00] VITALS: BP 129/64; PULSE 76; PULSE 85; RESP 16; TEMP 36.9; O2SAT 100
[2023-04-29 06:48] LABS: Basophils Percent Auto 0.1 % (0.2-1.2); Eosinophils Absolute Auto 0.2 K/mm3 (0-0.3); Eosinophils Percent Auto 2.8 % (0-4.4); Hematocrit 38.9 % (37.0-47.0); Hemoglobin 12.7 g/dL (12.0-15.0); Immature Granulocyte Absolute 0.01 K/mm3 (0.00-0.031); Immature Granulocyte Percent A 0.1 % (0-0.5); Lymphocytes Absolute Auto 2.18 K/mm3 (0.9-3.2); Lymphocytes Percent Auto 30.7 % (18.3-44.2); Mean Corpuscular HGB Conc 32.6 g/dl (32-36); Mean Platelet Volume 11.2 fl (7.4-10.4); Monocytes Absolute Auto 0.9 K/mm3 (0.1-0.6); Monocytes Percent Auto 12.6 % (2.6-8.5); Neutrophils Absolute Auto 3.8 K/mm3 (1.3-6.7); Neutrophils Percent Auto 53.7 % (45.5-73.1); Platelet Count Result 165 k/mm3 (150-375); Red Blood Count 3.97 M/mm3 (4.2-5.4); Red Cell Distribution Width 12.3 % (11.5-14.5); White Blood Count 7.1 K/mm3 (4.5-10.0)
[2023-04-29 07:01] LABS: Alanine Aminotransferase 37 U/L (6-35); Alkaline Phosphatase 57 U/L (38-126); Anion Gap 3 mmol/L (8-16); Aspartate Amino Transferase 29 U/L (14-36); Bilirubin,Total 0.3 mg/dL (0.2-1.3); Blood Urea Nitrogen 15 mg/dL (7-17); Calcium 8.5 mg/dL (8.4-10.2); Carbon Dioxide 31 mmol/L (22-30); Chloride 104 mmol/L (98-107); Estimated CRCL calculation 95 ml/min; Estimated Glomerular Filt Rate > 60; Glucose 130 mg/dL (65-110); Magnesium 2.2 mg/dL (1.6-2.3); Potassium 4.2 mmol/L (3.4-5.0); Sodium 138 mmol/L (137-145)
[2023-04-29 08:00] VITALS: BP 143/69; PULSE 69; PULSE 80; RESP 18; TEMP 36.7; O2SAT 95
[2023-04-29] MEDS: FLUTICASONE/SALMETEROL 230-21 MCG INHALER 1 PUFF 2 PUFF INHALATION (08:37)
[2023-04-29] MEDS: ATORVASTATIN 40 MG TABLET PO (08:56)
[2023-04-29] MEDS: amLODIPine BESYLATE 5 MG TABLET 10 MG PO (08:56)
[2023-04-29] MEDS: PARoxetine 20 MG TABLET 40 MG PO (08:56)
[2023-04-29] MEDS: PANTOPRAZOLE 40 MG TABLET PO (08:56)
[2023-04-29] MEDS: lamoTRIgine 50 MG TABLET PO (08:56)
[2023-04-29] MEDS: lisinopriL 10 MG TABLET PO (08:56)
[2023-04-29] MEDS: LORATADINE 10 MG TABLET PO (09:03)
[2023-04-29] MEDS: LORazepam (*CRX) 1 MG TABLET PO (09:03)
[2023-04-29] MEDS: PERFLUTREN LIPID MICROSPHERES 1.5 ML VIAL DILUTED TO 10 ML TOTAL VOLUME IV PUSH (13:00)
[2023-04-29 13:16] VITALS: BP 167/74; PULSE 84; RESP 18; TEMP 36.7; O2SAT 100
[2023-04-29] MEDS: ASPIRIN 81 MG CHEWABLE TABLET PO (13:52)
--- NOTE | 2023-04-30 13:20 | P.DS_ITS ---
DS: Admitting Diagnosis Discharge Date 04/29/23 Admitting Diagnosis Acute CVA DS: Discharge Diagnosis Discharge Diagnosis (1) CVA (cerebral vascular accident): Qualifiers: CVA mechanism: unspecified Qualified Code(s): I63.9 - Cerebral infarction, unspecified Code(s): I63.9 - Cerebral infarction, unspecified Status: Acute Assessment and Plan: Patient presented to the ED with left-sided weakness, facial droop, speech disturbance and headache. * CT head no acute intracranial process * CTA head and neck less than 50% stenosis bilateral carotid arteries * MRI of the brain revealing acute infarct in the right yaona * On presentation patient is blood pressure was 181/81, currently 167/74 * Patient has been consistently hypertensive and lisinopril 10 mg started, added amlodipine PO daily, increase lisinopril to 20 mg po * Lipid panel revealed elevated LDL started atorvastatin * P.r.n. IV hydralazine * Allow permissive hypertension * Neurology consulted * PT and OT consulted (2) Complicated migraine: Code(s): G43.109 - Migraine with aura, not intractable, without status migrainosus Status: Acute Assessment and Plan: * CT and CTA of the head and neck within normal limits * Now resolved * Neurology consult (3) Generalized anxiety disorder: Code(s): F41.1 - Generalized anxiety disorder Status: Chronic Assessment and Plan: * Continue home meds * Continue to monitor (4) GERD (gastroesophageal reflux disease): Qualifiers: Esophagitis presence: without esophagitis Qualified Code(s): K21.9 - Gastro-esophageal reflux disease without esophagitis Code(s): K21.9 - Gastro-esophageal reflux disease without esophagitis Status: Chronic Assessment and Plan: * Continue Zantac (5) Obesity: Qualifiers: Body mass index: BMI 36.0-36.9 Obesity classification: adult class 2 (BMI 35 - 39.9) Obesity type: unspecified obesity type Serious obesity comorbidity presence: with serious comorbidity Qualified Code(s): E66.01 - Morbid (severe) obesity due to excess calories; Z68.36 - Body mass index [BMI] 36.0-36.9, adult Code(s): E66.9 - Obesity, unspecified Status: Chronic Assessment and Plan: * Lifestyle and diet modifications (6) Malignant hypertension: Code(s): I10 - Essential (primary) hypertension Status: Acute Assessment and Plan: * BP is still elevated at 180/62, currently 167/74 * Added amlodipine, increased lisinopril 10 mg PO once * PRN hydralazine and lisinopril * Continue to trend (7) Brainstem stroke: Code(s): I63.9 - Cerebral infarction, unspecified Status: Acute Assessment and Plan: * See above (8) Hyperlipidemia: Qualifiers: Hyperlipidemia type: mixed hyperlipidemia Qualified Code(s): E78.2 - Mi xed hyperlipidemia Code(s): E78.5 - Hyperlipidemia, unspecified Status: Acute Assessment and Plan: * Cholesterol 216, LDL 148, HDL 53, Triglycerides 120 * Start and continue atorvastatin * LFTs stable DS: Summary Hospital Course Hospital Course: patient is a 58-year-old female with a past medical history of COPD, anxiety, depression who presented to ED with complaints of left-sided weaknes, facial droop speech disturbance and headache. CT of the
--- NOTE | 2023-04-30 13:20 | PM.DS ---
DS: Admitting Diagnosis Discharge Date 04/29/23 Admitting Diagnosis Acute CVA DS: Discharge Diagnosis Discharge Diagnosis (1) CVA (cerebral vascular accident): Qualifiers: CVA mechanism: unspecified Qualified Code(s): I63.9 - Cerebral infarction, unspecified Code(s): I63.9 - Cerebral infarction, unspecified Status: Acute Assessment and Plan: Patient presented to the ED with left-sided weakness, facial droop, speech disturbance and headache. CT head no acute intracranial process CTA head and neck less than 50% stenosis bilateral carotid arteries MRI of the brain revealing acute infarct in the right yoana On presentation patient is blood pressure was 181/81, currently 167/74 Patient has been consistently hypertensive and lisinopril 10 mg started, added amlodipine PO daily, increase lisinopril to 20 mg po Lipid panel revealed elevated LDL started atorvastatin P.r.n. IV hydralazine Allow permissive hypertension Neurology consulted PT and OT consulted (2) Complicated migraine: Code(s): G43.109 - Migraine with aura, not intractable, without status migrainosus Status: Acute Assessment and Plan: CT and CTA of the head and neck within normal limits Now resolved Neurology consult (3) Generalized anxiety disorder: Code(s): F41.1 - Generalized anxiety disorder Status: Chronic Assessment and Plan: Continue home meds Continue to monitor (4) GERD (gastroesophageal reflux disease): Qualifiers: Esophagitis presence: without esophagitis Qualified Code(s): K21.9 - Gastro-esophageal reflux disease without esophagitis Code(s): K21.9 - Gastro-esophageal reflux disease without esophagitis Status: Chronic Assessment and Plan: Continue Zantac (5) Obesity: Qualifiers: Body mass index: BMI 36.0-36.9 Obesity classification: adult class 2 (BMI 35 - 39.9) Obesity type: unspecified obesity type Serious obesity comorbidity presence: with serious comorbidity Qualified Code(s): E66.01 - Morbid (severe) obesity due to excess calories; Z68.36 - Body mass index [BMI] 36.0-36.9, adult Code(s): E66.9 - Obesity, unspecified Status: Chronic Assessment and Plan: Lifestyle and diet modifications (6) Malignant hypertension: Code(s): I10 - Essential (primary) hypertension Status: Acute Assessment and Plan: BP is still elevated at 180/62, currently 167/74 Added amlodipine, increased lisinopril 10 mg PO once PRN hydralazine and lisinopril Continue to trend (7) Brainstem stroke: Code(s): I63.9 - Cerebral infarction, unspecified Status: Acute Assessment and Plan: See above (8) Hyperlipidemia: Qualifiers: Hyperlipidemia type: mixed hyperlipidemia Qualified Code(s): E78.2 - Mixed hyperlipidemia Code(s): E78.5 - Hyperlipidemia, unspecified Status: Acute Assessment and Plan: Cholesterol 216, LDL 148, HDL 53, Triglycerides 120 Start and continue atorvastatin LFTs stable DS: Summary Hospital Course Hospital Course: patient is a 58-year-old female with a past medical history of COPD, anxiety, depression who presented to ED with complaints of left-sided weaknes, facial droop speech disturbance and headache. CT of the head showed no acute intracranial process, CT of the head neck showed less than 50% stenosis bilaterally. MRI of the brain revealed acute infarct of the right yoana. Blood pressure was noted to be elevated and blood pressure medications has been initiated. Lipid panel revealed elevated LDL patient was started on atorvastatin. Neurology was consulted and seen the patient. Patient was started on aspirin. patient has been doing well however [facility] and has not seen a primary care provider and quite a while. Patient was odin
--- NOTE | 2023-04-30 13:35 | PC.NURSE ---
Hospitalist called stating to contact the patient to confirm preferred home pharmacy so patient can start taking medications until able to see PCP. This RN verified preferred pharmacy with patient and explained discharging medications. Patient voiced understanding. Medications electronically transmitted to preferred pharmacy.
== END 2023-04-29 16:40 | disposition left against medical advice (07) | DRG 65 ==
LOC: ANHED 04-27 02:23 → ANH3MEDSUR 04-27 03:08
PROVIDERS: Internal Medicine Critical Care Medicine; Admitting Provider Internal Medicine; Emergency Provider Emergency Medicine; Visit Provider Nurse Practitioner
DX: I63.9 Cerebral infarction, unspecified (principal); G81.94 Hemiplegia, unspecified affecting left nondominant side; R29.810 Facial weakness; R47.89 Other speech disturbances; H53.2 Diplopia; E66.01 Morbid (severe) obesity due to excess calories; E78.2 Mixed hyperlipidemia; F17.210 Nicotine dependence, cigarettes, uncomplicated; F41.1 Generalized anxiety disorder; F32.A Depression, unspecified; G47.00 Insomnia, unspecified; G43.109 Migraine with aura, not intractable, without status migrainosus; I10 Essential (primary) hypertension; J44.9 Chronic obstructive pulmonary disease, unspecified; K21.9 Gastro-esophageal reflux disease without esophagitis; R29.701 NIHSS score 1; Z68.36 Body mass index [BMI] 36.0-36.9, adult
CPT/HCPCS: 36415; 70450; 70496; 70498; 70553; 71045; 80053; 80061; 81003; 82948; 83036; 83735; 84484; 85025; 85610; 85730; 93005; 94640; 96361; 96365; 96375; 97110; 97112; 97161; 97166; 97530; 99285; A4565; A9270; A9577; C8929; G0378; J0360; J0780; J1200; J1885; J2060; J2270; J3475; J7030; Q9957; Q9967